=== PATIENT | female | born 1995 | race African-American/Black ===

== ENCOUNTER → 2021-06-12 | Outpatient (CLI) | payer OTHER ==
[~2021-06-12] MED LIST: CEPH500T PO; MULTTAB20 PO
== END ==
LOC: M RAD 09:31
PROVIDERS: ATTEND Advanced Practice Midwife
DX: Z36.2 Encounter for other antenatal screening follow-up (principal); Z53.8 Procedure and treatment not carried out for other reasons

== ENCOUNTER 2021-11-02 00:50 | Inpatient (IN) | payer OTHER ==
[~2021-11-02] VITALS: Ht 177.8 cm; Wt 103.1 kg
[2021-11-02] VITALS (30 sets, daily range): BP systolic 106–181; BP diastolic 56–111
[2021-11-02] MEDS ORDERED: LACTATED RINGER'S 1000 ML IV STA (01:56)
[2021-11-02] MEDS ORDERED: LIDOCAINE 1% MDV 20ML VIAL INFIL PRN (02:00)
[2021-11-02] MEDS ORDERED: OXYTOCIN DRIP 30 UNITS in IV 1 EA IV PRN ×4 (02:00)
[2021-11-02] MEDS ORDERED: LR 1,000 ML IV SCH (02:00)
[2021-11-02 02:19] LABS: HEMATOCRIT 38.3 % (36.0-47.0); HEMOGLOBIN 12.6 g/dl (12.0-15.5); MEAN CORPUSCULAR HEMOGLOBIN 24.7 pg (27.0-33.0); MEAN CORPUSCULAR HGB CONC 32.9 g/dl (32.0-36.5); PLATELET COUNT, AUTOMATED 253 10^3/uL (150-450); RED BLOOD COUNT 5.11 10^6/uL (4.00-5.40); WHITE BLOOD COUNT 11.2 10^3/uL (4.0-10.0)
[2021-11-02] MEDS ORDERED: ONDANSETRON 4MG 2ML VIAL IV PRN (03:20)
[2021-11-02] MEDS ORDERED: FENTANYL/ROPIVACAINE/NACL BAG 100 ML EPIDURAL SCH (03:20)
[2021-11-02] MEDS ORDERED: diphenhydrAMINE 50MG/ML VIAL (J1200) IV PRN (03:20)
[2021-11-02] MEDS ORDERED: ePHEDrine SULFATE 25 MG/5 ML(5MG/ML) SYRINGE IVP PRN (03:20)
[2021-11-02] MEDS ORDERED: LR 500 ML IV PRN (03:20)
[2021-11-02] MEDS ORDERED: EPIDURAL/PCA KEYS XX PRN (03:20)
[2021-11-02] MEDS ORDERED: NALOXONE INJ 0.4MG/1ML VIAL (J2310 PER 1MG) IV PRN (03:20)
[2021-11-02] MEDS ORDERED: FENTANYL 2MCG/ML ROPIVACAINE 0.2% IN 0.9% NACL 100ML IVBAG As Ordered ONE (03:29)
[2021-11-02] MEDS ORDERED: DOCUSATE SODIUM 100MG CAPSULE PO PRN (10:25)
[2021-11-02] MEDS ORDERED: MOM 30ML SUSPENSION UDC PO PRN (10:25)
[2021-11-02] MEDS ORDERED: OXYTOCIN DRIP 30 UNITS in IV 1 EA IV SCH (10:25)
[2021-11-02] MEDS ORDERED: DIBUCAINE 1% OINTMENT 30GM TOP PRN (10:25)
[2021-11-02] MEDS ORDERED: RHOGAM 300 MCG (1500 IU) INJ (J2790) IM SCH (10:25)
[2021-11-02] MEDS ORDERED: ANUSOL HC CREAM 30GM TOP PRN (10:25)
[2021-11-02] MEDS ORDERED: IBUPROFEN 800 MG TAB PO PRN (10:25)
[2021-11-02] MEDS ORDERED: METHYLERGONOVINE MALEATE 0.2 MG TAB PO PRN (10:25)
[2021-11-02] MEDS: ACETAMINOPHEN 500 MG TAB PO PRN (14:42)
[2021-11-03] MEDS ORDERED: UNRESOLVED CLARIFICATION ENTRY XX SCH (00:01)
[2021-11-03] MEDS: ACETAMINOPHEN 500 MG TAB PO PRN (00:25)
[2021-11-03 06:00] VITALS: BP 114/60
[2021-11-03] MEDS: PRENATAL VITAMINS CHEWABLE TABLET PO SCH ×2 (09:00→09:16)
[2021-11-04 05:25] VITALS: BP 105/77
[2021-11-04] MEDS ORDERED: PRENCHW PO (07:38)
[2021-11-04] MEDS ORDERED: IBUP80TA PO (07:38)
[2021-11-04] MEDS ORDERED: COLA100C5 PO (07:38)
[2021-11-04] MEDS: PRENATAL VITAMINS CHEWABLE TABLET PO SCH (08:36)
[2021-11-04] MEDS ORDERED: MEASLES,MUMPS,RUBELLA VACCINE INJ (MMR-II) (90707) SC.IMMUN ONE (09:00)
[2021-11-04] MEDS ORDERED: BOOSTRIX/ADACEL VACCINE (DIPHTH/PERTUSS/ACELL/TETANUS) 0.5ML SYR IM.IMMUN ONE (09:00)
== END 2021-11-04 11:32 | disposition home or self-care (01) | DRG 807 ==
LOC: M LDO 00:50 → M LDI 01:55 → M OBS 15:13
PROVIDERS: ADMIT Obstetrics & Gynecology; ATTEND Obstetrics & Gynecology
PROC: 10E0XZZ Delivery of Products of Conception, External Approach (ICD-10-PCS; principal; 2021-11-02)
PROC: 0HQ9XZZ Repair Perineum Skin, External Approach (ICD-10-PCS; 2021-11-02)
PROC: 10907ZC Drainage of Amniotic Fluid, Therapeutic from Products of Conception, Via Natural or Artificial Opening (ICD-10-PCS; 2021-11-02)
DX: O48.0 Post-term pregnancy (principal); Z37.0 Single live birth; D57.3 Sickle-cell trait; Z3A.40 40 weeks gestation of pregnancy; O69.81X0 Labor and delivery complicated by cord around neck, without compression, not applicable or unspecified; O70.0 First degree perineal laceration during delivery; O99.02 Anemia complicating childbirth